=== PATIENT | male | born 1975 | race Caucasian/White ===

== ENCOUNTER 2019-10-07 08:17 | Emergency (ER) | payer OTHER, SELFPAY ==
--- NOTE | ~2019-10-07 | XR_ITS ---
EXAMINATION: XR toe 1st LT min 2V DATE: 10/07/2019 08:49 INDICATION: Injury to the left great toe TECHNIQUE: Dorsal plantar, lateral and 2 oblique views of the left great toe were obtained. COMPARISON: None FINDINGS: Nondisplaced comminuted fracture of the mid to distal aspect of the left great toe which does not inv olve the articular surface. Alignment remains essentially anatomic. No other fractures identified. 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 Soft tissue swelling about the great toe. IMPRESSION: Nondisplaced comminuted extra articular fracture at the mid to distal aspect of the left first distal phalanx. If there is associated nailbed injury this would be considered equivalent of an open/compou nd fracture at increased risk of developing osteomyelitis. Reviewed, dictated and finalized at location A. IMPRESSION: Nondisplaced comminuted extra articular fracture at the mid to distal aspect of the left first distal phalanx. If there is associated nailbed injury this woul d be considered equivalent of an open/compound fracture at increased risk of de veloping osteomyelitis.
[2019-10-07 08:34] VITALS: BP 107/66; PULSE 78; RESP 18; TEMP 36.8; O2SAT 99
--- NOTE | 2019-10-07 08:47 | ED_ITS ---
HPI - Extremity Injury (Lower) General Chief Complaint: Extremity Injury, Lower Stated Complaint: left great toe injury Time Seen by Provider: 10/07/19 08:27 History of Present Illness HPI Narrative: Dropped a piece of furniture on his left great toe last night. He has pain and bleeding from the toe. He is able to bear weight with discomfort. Unsure tetanus status Related Data Allergies Allergy/AdvReac Type Severity Reaction Status Date / Time No Known Allergies Allergy Verified 10/07/19 08:43 Review of Systems Review of Systems: All systems reviewed & are unremarkable except as noted in HPI and below PMFSH Social History Social History (Updated 10/07/19 @ 17:27 by Bryon Orellana MD) Smoking status: Current every day smoker Gender identity (if verbalized by the patient): Male Exam Const: General: no acute distress and alert Orientation/consciousness: patient oriented x3 HENMT: Head: normal to inspection Resp: Effort & Inspection: normal respiratory effort Skin: Wounds: wounds noted (small laceration at the base of left great toe nail. Bleeding from under na) Neuro: General: patient oriented x3 and no focal motor deficits Speech: normal speech Extrem: Other: left great toe mildly swollen and tender, no obvious deformity Course Vital Signs Vital signs: Vital Signs Temperature 36.8 C 10/07/19 08:34 Pulse Rate 78 10/07/19 08:34 Respiratory Rate 18 10/07/19 08:34 Blood Pressure 107/66 10/07/19 08:34 Pulse Oximetry 99 10/07/19 08:34 Temperature 36.8 C 10/07/19 08:34 Pulse Rate 78 10/07/19 08:34 Respiratory Rate 18 10/07/19 08:34 Blood Pressure 107/66 10/07/19 08:34 Pulse Oximetry 99 10/07/19 08:34 MDM - Extremity Injury (Lower) MDM Narrative Medical decision making narrative: Comminuted nondisplced fracture with overlying laceration. This is an open fracture equivalent. I will provide prophylactic keflex Imaging Data Radiologist's impression: ITS Impressions Toe X-Ray 10/07/19 08:54 IMPRESSION: Nondisplaced comminuted extra articular fracture at the mid to distal aspect of the left first distal phalanx. If there is associated nailbed injury this would be considered equivalent of an open/compound fracture at increased risk of developing osteomyelitis. Discharge Plan Discharge Clinical Impression: Fracture of toe, open Qualifiers: Encounter type: initial encounter Toe: great toe Phalanx: distal Fracture alignment: nondisplaced Laterality: left Qualified Code(s): S92.425B - Nondisplaced fracture of distal phalanx of left great toe, initial encounter for open fracture Patient Disposition: Home, Self-Care Condition: Stable Instructions: Antibiotic Form, Toe Fracture (ED) Prescriptions: New cephalexin [Keflex] 500 mg capsule 500 mg PO Q12H Qty: 10 RF: 0 hydrocodone-acetaminophen [[place]] 5-325 mg tablet 1 tablet PO Q4H PRN (Reason: pain) Qty: 10 RF: 0 Follow-up/Referrals: Soy Hand MD [Physician] - 1 Week PHYSICIAN,APPLICATION CONSULTANT [Primary Care Provider] - Stand Alone Forms: Work/School Release IP Discharge Date/Time: 10/07/19 09:53
[2019-10-07] MEDS: CEPHALEXIN 500 MG CAPSULE PO ×2 (09:26→09:33)
[2019-10-07] MEDS: IBUPROFEN 600 MG TABLET PO (09:43)
== END 2019-10-07 09:53 | disposition home or self-care (01) ==
PROVIDERS: Emergency Provider Emergency Medicine
DX: S92.425B Nondisplaced fracture of distal phalanx of left great toe, initial encounter for open fracture (principal); F17.200 Nicotine dependence, unspecified, uncomplicated; W20.8XXA Other cause of strike by thrown, projected or falling object, initial encounter
CPT/HCPCS: 73660; 99284; A9270